=== PATIENT | female | born 1955 | race Caucasian/White ===

== ENCOUNTER 2019-11-28 05:24 | Day surgery (SDC) | payer MEDICARE, OTHER ==
[~2019-11-28] VITALS: Ht 175.3 cm; Wt 73.9 kg
[~2019-11-28 05:24] MED LIST: BUMETANIDE TAB 1MG PO; CLARITIN 10 MG10 MG PO; CRESTOR20 MG PO; HYDROCODON-ACE1 EA10 PO; LEVEMIR FL100 UNIT/1 SC; LEVOTHYROXINE100 MCG PO; NEURONTIN600 MG PO; PLAVIX75 MG PO; VITAMIN D10000 UNI1 PO
[2019-11-28 05:53] LABS: HEMATOCRIT 36.3 % (36.0-48.0); MCH 28.6 pg (26.0-34.0); MCHC 33.1 g/dL (31.0-37.0); MCV 86.4 fL (80.0-100.0); MEAN PLATELET VOLUME 9.7 fL (7.4-10.4); RBC 4.2 10x6/uL (4.00-5.40); RDW 18.9 % (11.5-14.5); WBC 12.8 10x3/uL (4.8-10.8)
[2019-11-28 05:59] LABS: INR 0.93 (0.85-1.17); PROTIME 12.5 SECONDS (11.6-15.0)
[2019-11-28 06:12] LABS: ANION GAP 13.3 mmol/L (8-16); CALCIUM 9.2 mg/dL (8.5-10.1); CARBON DIOXIDE 25.7 mmol/L (21.0-32.0); CREATININE - SERUM 1.7 mg/dL (0.6-1.3)
[2019-11-28] MEDS ORDERED: [UNRECOGNIZED DRUG - OTHER] SQ (06:30)
[2019-11-28 06:31] VITALS: BP 139/68; Ht 175.3 cm; Wt 73.9 kg
[2019-11-28] MEDS ORDERED: VISTARIL50 MG PO (08:18)
[2019-11-28] MEDS ORDERED: PERCOCET 10-321 EAC1 PO (08:18)
[2019-11-28] MEDS ORDERED: ZOFRAN ODT4 MG/UDTAB PO (08:19)
--- NOTE | 2019-11-28 10:02 | NUR ---
0925-REC'D FROM RR. AWAKE AND ALERT.VSS. DRESSING CDI TO LEFT ANKLE,ELEVATED ON PILLOW AND ICE ON FOOT. REPORTS PAIN 01/01. REVIEWED DISCHARGE CRITERIA. CL IN EASY REACH. FAMILY AT BEDSIDE
--- NOTE | 2019-11-28 10:22 | NUR ---
0955-FULL LIQUID TRAY TO ROOM. AWAKE AND ALERT. NO CHANGES TO LEFT ANKLE,DRESSING CDI. CAP REFILL WNL. ICE PACK IN PLACE. CL IN EASY REACH
--- NOTE | 2019-11-28 11:29 | NUR ---
1020-REPORTS PAIN /10 TO SURGICAL SITE. ADMINISTERED PERCOCET 10/325MG 1 BY MOUTH PER MD ORDERS. TOLERATED TRAY. DRESSING CDI. ICE PACK TO OUTTER LEFT ANKLE. CL IN EASY REACH. FAMILY AT BEDSIDE.
--- NOTE | 2019-11-28 11:30 | NUR ---
1045-REVIEWED POST OPERATIVE INSTRUCTIONS AND FOLLOW UP APPOINTMENT.VERBALIZED UNDERSTANDING
--- NOTE | 2019-11-28 11:31 | NUR ---
1110-DISCHARGE CRITERIA MET. PAIN 01/01. PIVOT TRANSFER WITH STANDBY ASSIST INTO W/C WITHOUT DIFFICULTIES. ESCORTED OUT VIA W/C WITH NIECE AWAITING TO DRIVE HOME
--- NOTE | 2019-11-28 12:27 | OP ---
PATIENT NAME: MILAGROS RANGEL MEDICAL RECORD: [id number] :53 LOCATION:[facility] ADMISSION DATE: SURGEON: ABDIEL FRANKLIN DO DATE OF OPERATION: 11/28/2019 PROCEDURE PERFORMED: Left ankle open reduction and internal fixation. PREOPERATIVE DIAGNOSIS: Left ankle bimalleolar fracture. POSTOPERATIVE DIAGNOSIS: Left ankle bimalleolar fracture. INDICATIONS: Ms. Rangel is a 64-year-old female, who is being treated for cancer, is on chemo, who fell and fractured her left ankle. She is unable to put weight on it. She was seen in my office and we scheduled her for surgery. The fractures were minimally displaced, but due to the fact that it was bimalleolar, it has a high risk of becoming displaced and I informed her that risk as well as risk of infection, bleeding, damage to the superficial peroneal nerve and other nerves in the area, nonunion, malunion, need for further surgery, blood clots, and even , and she signed the consent. SURGEON: Abdiel Franklin DO DESCRIPTION OF PROCEDURE: The patient was given a block by anesthesia in the preoperative area, taken to the operative suite, laid in supine position, given general anesthetic and LMA was placed. She was given a gram of Ancef preoperatively. The left lower extremity was then prepped and draped in sterile fashion. Timeout was performed. Everyone was in agreement with the correct side, site, patient, and procedure. Then exsanguinated the left lower extremity with an Esmarch. Tourniquet was inflated to 350 mmHg and was up for 28 minutes. The incision then began over the lateral malleolus. Careful dissection was made down to the fibula. The fracture was minimally nondisplaced. I put 2 locking screws in the shaft as her bone was very soft and then 4 distally. This was confirmed to be in good position on AP and lateral. Then went to the medial malleolus. Put 2 guide pin, K-wires through the medial malleolus and put two 4.0 cannulated partially threaded screws 44 mm in length self-tapping over the guide pin. We then removed those K-wires and confirmed to be good on AP and lateral. Stressed the joint, did not widen and a medial clear space. I then let the tourniquet down. The site was then irrigated and closed by Alfredito Cohn, certified surgical carpenter assistant installer, with 2-0 Vicryl in an inverted interrupted fashion over the lateral incision and ZipLine placed on that and 4-0 Monocryl on the medial side in an inverted interrupted fashion. Steri-Strips were then placed over that. Adaptic, 4 x 4s, ABD were then wrapped around the ankle, secured with cast padding and then a 4 x 30 splint was placed on the ankle, a posterior short leg splint. She was then awakened and taken to recovery in stable condition. BLOOD LOSS: Minimal. COMPLICATIONS: None. TRANSINT:[id number] Voice Confirmation ID: [id number] DOCUMENT ID: [id number] OPERATIVE REPORT [id number] MILAGROS RANGEL MICHAEL D, DO at 1227 CC: [id number] DICTATION DATE: 11/28/19822 STRATEGIC MARKETING MANAGER: 11/28/19 1054 [facility] 11/28/19 [id number] [place] [address]
== END 2019-11-28 11:10 | disposition home or self-care (01) ==
LOC: D.OPS 05:24 → D.PAN 07:00 → D.OPS 11:10
PROVIDERS: Anesthesiology; ATTEND Orthopaedic Surgery
DX: S82.842A Displaced bimalleolar fracture of left lower leg, initial encounter for closed fracture (principal); W19.XXXA Unspecified fall, initial encounter; E11.9 Type 2 diabetes mellitus without complications; M25.572 Pain in left ankle and joints of left foot; I25.10 Atherosclerotic heart disease of native coronary artery without angina pectoris; Z79.01 Long term (current) use of anticoagulants; C34.90 Malignant neoplasm of unspecified part of unspecified bronchus or lung; S92.355A Nondisplaced fracture of fifth metatarsal bone, left foot, initial encounter for closed fracture; Z79.4 Long term (current) use of insulin

== ENCOUNTER 2020-01-06 06:51 | Inpatient (IN) | payer MEDICARE, OTHER ==
[2020-01-06] VITALS (9 sets, daily range): BP systolic 93–121; BP diastolic 45–68; BMI 24.1
[~2020-01-06] VITALS: Ht 175.3 cm; Wt 73.9 kg
[~2020-01-06 06:51] MED LIST changes: +PERCOCET 10-321 EAC1 PO; +VISTARIL50 MG PO; +ZOFRAN ODT4 MG/UDTAB PO; +[UNRECOGNIZED DRUG - OTHER] SQ
[2020-01-06 07:22] LABS: HEMATOCRIT 35.2 % (36.0-48.0); HEMOGLOBIN 11.5 g/dL (12-16); MCH 29.8 pg (26.0-34.0); MCHC 32.7 g/dL (31.0-37.0); MCV 91.2 fL (80.0-100.0); MEAN PLATELET VOLUME 9.6 fL (7.4-10.4); RBC 3.86 10x6/uL (4.00-5.40); RDW 19.9 % (11.5-14.5); WBC 9.2 10x3/uL (4.8-10.8)
[2020-01-06 07:57] LABS: ANION GAP 13.6 mmol/L (8-16); CALCIUM 8.6 mg/dL (8.5-10.1); CARBON DIOXIDE 25.4 mmol/L (21.0-32.0); CREATININE - SERUM 1.5 mg/dL (0.6-1.3)
--- NOTE | 2020-01-06 11:50 | NUR ---
PATIENT ADMITTED TO ROOM 2216. ADMISSION COMPLETE. DENIES NEEDS AT THIS TIME. LEFT ANKLE ELEVATED ON 2 PILLOWS PER ORDER. DRSG C/D/I. FALL PRECAUTIONS IN PLACE. WILL CONTINUE TO MONITOR.
--- NOTE | 2020-01-06 12:34 | NUR ---
PATIENT SLEEPING. WILL CONTINUE TO MONITOR.
--- NOTE | 2020-01-06 13:48 | OP ---
PATIENT NAME: MILAGROS RANGEL MEDICAL RECORD: [id number] :53 LOCATION: D.6 ADMISSION DATE: SURGEON: JUSTINO FRANKLIN DO DATE OF OPERATION: 01/06/2020 PROCEDURE PERFORMED: Left ankle removal of hardware with irrigation and debridement, and wound VAC application with cultures. PREOPERATIVE DIAGNOSES: Left ankle wound dehiscence with exposed hardware and infection. POSTOPERATIVE DIAGNOSES: Left ankle wound dehiscence with exposed hardware and infection. INDICATIONS: Ms. Rangel is a 64-year-old female who underwent left ankle open reduction internal fixation for a bimalleolar ankle fracture. She was doing well up until a few days ago where she was wearing a boot and had rubbed off a blister and then a hole on the lateral aspect of the ankle, exposing the hardware, it went all the way through her skin. She showed up in clinic yesterday and there was no drainage, so I told her we need to get that out of there and ellipse that and take the hardware out and hopefully close up that wound before it got infected and she showed up today and it was draining purulent fluid. She is aware of the risks including continued pain, below-knee amputation, infection, bleeding, damage to nerves and vessels, need for further surgery, and she signed the consent. SURGEON: Justino Franklin DO DESCRIPTION OF PROCEDURE: The patient was taken to the operative suite, laid in supine position after given a block by anesthesia in preoperative area, the left lower extremity was then prepped and draped in sterile fashion. She was sedated and LMA was placed prior to that. Once the left lower extremity was prepped and draped in sterile fashion, timeout was performed, everyone was in agreement with the correct side, site, patient and procedure. She did receive 2 grams Ancef. The incision was then made over the old incision and the hardware was removed from the left ankle. Cultures were taken prior to removing the hardware and then a bone biopsy was taken after removing the hardware in the fibula. We then did an elliptical incision type where the skin was worn through. I then irrigated with a 10% povidone iodine solution with 500 mL normal saline irrigated that and then irrigated with 3 liters normal saline. After the saline was done, I then closed the skin with a 2-0 Prolene in horizontal mattress and simple fashion. I then placed a Prevena plus wound VAC on the ankle. She was then wrapped with an Brandon wrap, awakened and taken to recovery in stable condition. BLOOD LOSS: Minimal. COMPLICATIONS: None. TRANSINT:[id number] Voice Confirmation ID: [id number] DOCUMENT ID: [id number] OPERATIVE REPORT [id number] MILAGROS RANGEL MICHAEL D, DO at 1348 CC: [id number] DICTATION DATE: 01/06/20 1052 PIG CONVEYOR OPERATOR: 01/06/20 1220 [facility] [address] [place] [address]
--- NOTE | 2020-01-06 16:04 | NUR ---
GLUCOMETER READING 496, THEN 356, THEN 296 ON THREE DIFFERENT FINGERS WITH SAME GLUCOMETER. ORDER PLACED FOR LAB TO DRAW.
--- NOTE | 2020-01-06 19:49 | NUR ---
PATIENT RESTING IN BED WITH NO S/S OF DISTRESS. PATIENT REQUESTED A PAIN PILL IF TIME. PATIENT DENIES OTHER NEEDS AT THIS TIME. BED IN LOWEST POSITION AND CALL LIGHT WITHIN REACH. ENCOURAGED THE PATIENT TO CALL IF SHE HAS NEEDS.
--- NOTE | 2020-01-06 21:01 | NUR ---
ADMINISTERED MEDS PER ORDERS. PATIENT DENIES OTHER NEEDS. ENCOURAGED THE PATIENT TO CALL IF SHE HAS NEEDS. W
[2020-01-07 01:08] VITALS: BP 80/44
[2020-01-07 05:38] VITALS: BP 98/54
[2020-01-07 06:02] LABS: BASOPHILS 0.3 % (0-2); EOSINOPHILS 5.2 % (0-7); HEMATOCRIT 33.2 % (36.0-48.0); HEMOGLOBIN 10.3 g/dL (12-16); IMMATURE GRANULOCYTES 3.6 % (0-5); MCH 29.1 pg (26.0-34.0); MEAN PLATELET VOLUME 9.9 fL (7.4-10.4); MONOCYTES 7.4 % (2-11); NEUTROPHILS 70.5 % (40-80); PLATELET COUNT 442 10x3/uL (130-400); RBC 3.54 10x6/uL (4.00-5.40); RDW 20.8 % (11.5-14.5); WBC 8.7 10x3/uL (4.8-10.8)
[2020-01-07 06:19] LABS: MCV 93.8 fL (80.0-100.0)
[2020-01-07 06:33] LABS: ANION GAP 12.6 mmol/L (8-16); CALCIUM 8.5 mg/dL (8.5-10.1); CARBON DIOXIDE 25.6 mmol/L (21.0-32.0); CREATININE - SERUM 1.6 mg/dL (0.6-1.3); MAGNESIUM - SERUM 1.9 mg/dL (1.8-2.4); POTASSIUM - SERUM 3.2 mmol/L (3.5-5.1)
--- NOTE | 2020-01-07 07:41 | NUR ---
PT K+ THIS MORNING IS 3.2, SPOKE TO DR FRANKLIN AND RECEIVED ORDERS FOR EP. NO OTHER NEEDS AT THIS TIME, CONTINUE WITH PLAN OF CARE
[2020-01-07 09:40] LABS: ERYTHROCYTE SEDIMENTATION RATE 61 mm/hr (0-30)
[2020-01-07 09:57] VITALS: BP 110/59
[2020-01-07 10:26] VITALS: Ht 175.3 cm; Wt 73.9 kg
--- NOTE | 2020-01-07 15:37 | NUR ---
I have reviewed this patient and I concur with the Shift Assessment completed by the Licensed Practical Nurse today this shift.
[2020-01-07 17:46] VITALS: BP 101/62
[2020-01-07 20:00] VITALS: BP 113/57
--- NOTE | 2020-01-08 01:11 | NUR ---
I have reviewed this patient and I concur with the Shift Assessment completed by the Licensed Practical Nurse today this shift.
--- NOTE | 2020-01-08 02:17 | NUR ---
PT RESTING IN BED. EYES CLOSED. NO SIGNS OF DISTRESS. BREATHING EVEN AND UNLABORED. LUNG SOUNDS CLEAR. IV SITE RT HAND DRESSING CLEAN DRY AND INTACT. NO SIGNS OF INFECTION. SKIN CLEAN DRY AND INTACT. BOWEL SOUNDS ACTIVE. LT LEG EMOBILIZER ON. WOUND VAC CLEAN DRY AND INTACT. WILL CONTINUE PLAN OF CARE. CALL LIGHT IN REACH. BED LOWERED AND LOCKED. BED RAILS UPX2
[2020-01-08 04:00] VITALS: BP 110/63
[2020-01-08 04:41] LABS: BASOPHILS 1.6 % (0-2); EOSINOPHILS 1.8 % (0-7); HEMATOCRIT 34.4 % (36.0-48.0); HEMOGLOBIN 10.7 g/dL (12-16); IMMATURE GRANULOCYTES 0.2 % (0-5); LYMPHOCYTES 31.1 % (15-50); MCH 29.4 pg (26.0-34.0); MCHC 31.1 g/dL (31.0-37.0); MCV 94.5 fL (80.0-100.0); MEAN PLATELET VOLUME 9.8 fL (7.4-10.4); MONOCYTES 11.6 % (2-11); NEUTROPHILS 53.7 % (40-80); PLATELET COUNT 388 10x3/uL (130-400); RBC 3.64 10x6/uL (4.00-5.40); RDW 20.9 % (11.5-14.5)
[2020-01-08 04:56] LABS: WBC 4.5 10x3/uL (4.8-10.8)
[2020-01-08 04:57] LABS: ANION GAP 11.7 mmol/L (8-16); CALCIUM 8.8 mg/dL (8.5-10.1); CARBON DIOXIDE 26.9 mmol/L (21.0-32.0); MAGNESIUM - SERUM 2.1 mg/dL (1.8-2.4); POTASSIUM - SERUM 3.6 mmol/L (3.5-5.1)
[2020-01-08 05:04] LABS: CREATININE - SERUM 2.2 mg/dL (0.6-1.3)
[2020-01-08 08:00] VITALS: BP 100/48
[2020-01-08 09:13] VITALS: BP 133/58
--- NOTE | 2020-01-08 10:10 | NUR ---
PT LYING IN BED, ASSISTED PT WITH BEDPAN AND BREAKFAST TRAY, PT WORKED WITH ES IN PT AND WAS TOLD CAN GET UP WITH NURSING STAFF IF NEEDED. ADMINISTERED PRN PAIN MEDICATION WITH MORNING MEDS, NO OTHER NEEDS VOICED, CONTINUE WITH PLAN OF CARE
[2020-01-08 12:36] VITALS: BP 94/85
--- NOTE | 2020-01-08 13:13 | NUR ---
PT STATED PAIN IS AT A 5, ADMINISTERED PRN PAIN MEDICATION. CONTINUE WITH PLAN OF CARE
--- NOTE | 2020-01-08 13:58 | NUR ---
I have reviewed this patient and I concur with the Shift Assessment completed by the Licensed Practical Nurse today this shift.
[2020-01-08 16:55] VITALS: BP 113/58
[2020-01-08 20:00] VITALS: BP 100/48
--- NOTE | 2020-01-08 21:00 | NUR ---
PT LYING IN BED RESTING WITHOUT DISTRESS. PT CONFUSED TO TIME AND SITUATION. EASILY REORIENTED. JUST RECIEVED PAIN MED FOR LEFT ANKLE. LEFT LEG ELEVATED ON PILLOW. LUNGS SOUNDS CLEAR BILAT. PT ONLY COMPLAINT AT THIS TIME IS THAT NOSE IS STOPPED UP. ASKED IF SHE WAS GETTING HER CLARITIN. TOLD PT WE WERE GIVING HER DANITZA. VERBALIZED UNDERSTANDING. BS 95, NO INSULIN AT THIS TIME PER SS, LANTUS HELD. IV RIGHT HAND INFUSING 1/2NS @ 100. WOUND VAC IN PLACE TO LEFT ANKLE. DENIES OTHER NEEDS. CL IN REACH, WILL CTM
[2020-01-09 04:00] VITALS: BP 121/65
[2020-01-09 05:16] LABS: BASOPHILS 0.6 % (0-2); EOSINOPHILS 1.8 % (0-7); HEMATOCRIT 29.2 % (36.0-48.0); HEMOGLOBIN 9.2 g/dL (12-16); IMMATURE GRANULOCYTES 0.2 % (0-5); LYMPHOCYTES 28.1 % (15-50); MCH 29.3 pg (26.0-34.0); MCHC 31.5 g/dL (31.0-37.0); MEAN PLATELET VOLUME 9.8 fL (7.4-10.4); MONOCYTES 10.1 % (2-11); NEUTROPHILS 59.2 % (40-80); PLATELET COUNT 330 10x3/uL (130-400); RBC 3.14 10x6/uL (4.00-5.40); RDW 20.9 % (11.5-14.5); WBC 4.9 10x3/uL (4.8-10.8)
[2020-01-09 05:40] LABS: ANION GAP 11.3 mmol/L (8-16); CALCIUM 8.2 mg/dL (8.5-10.1); CARBON DIOXIDE 24.2 mmol/L (21.0-32.0); CREATININE - SERUM 2.3 mg/dL (0.6-1.3); MAGNESIUM - SERUM 1.8 mg/dL (1.8-2.4); POTASSIUM - SERUM 3.5 mmol/L (3.5-5.1)
--- NOTE | 2020-01-09 08:05 | NUR ---
AWAKE AND ALERT. ORIENTED X3. NO C/O AT THIS TIME. FSBS 86. LUNGS ARE CLEAR BILATERALLY, NO COUGH NOTED. SKIN IS INTACT WITHOUT REDNESS EXCEPT INCISION TO LEFT ANKLE WHICH HAS A DRY INTACT DRESSING IN PLACE. PREVENA IN PLACE AT THIS TIME. NEURO CHECKS WNL. SL TO RIGHT HAND IS PATENT WITHOUT REDNESS ATINSERTION SITE. DENIES NEEDS.
[2020-01-09 09:00] VITALS: BP 115/63
--- NOTE | 2020-01-09 10:00 | NUR ---
ATE ALL OF BREAKFAST AND TOOK AM MEDS WITHOUT DIFFICULTY. ASSISTED WITH BED LAINEZ PER STAFF. VOIDED 500CC CLEAR YELLOW URINE. SKIN CARE PER STAFF.
[2020-01-09 12:34] VITALS: BP 115/60
--- NOTE | 2020-01-09 13:00 | NUR ---
ATE ALL OF LUNCH. NO C/O AT THIS TIME.
--- NOTE | 2020-01-09 13:45 | NUR ---
Nutrition Follow-up: Eating well. Ate all of breakfast this AM. Denies N/V, chewing/swallowing difficulties. Noted ST signed off. Reports having a BM since admit but unsure when. Diet: Diabetic Wt: 163# (01/06) Labs noted: Na 135, Glu 219, Ca 8.2 Meds noted: Humalog, vitamin D, Lantus, 1/2NS @ 100 -Monitor wt. -RD following.
--- NOTE | 2020-01-09 14:21 | NUR ---
UP IN CHAIR AT BEDSIDE PER PT. NO C/O AT THIS TIME.
--- NOTE | 2020-01-09 14:30 | MORECARE ---
CASE MANAGEMENT DISCHARGE SUMMARY PATIENT: MILAGROS RANGEL UNIT: [id number] ADM DATE: 01/06/20 AGE: 64 : 54 SEX: F ROOM/BED: D.2216 AUTHOR: AMARILIS HAYES PHYSICIAN: REFERRING PHYSICIAN: JUSTINO FRANKLIN DO DATE OF SERVICE: 01/09/20 Discharge Plan Patient Name[facility] MILAGROS [facility]ANGEL [facility] 1955 Planned Disposition: Home with Home Health Anticipated Discharge Date: Discharge Date: Expected LOS: Initial Reviewer: [id number] Initial Review Date: 01/07/2020 Generated: 01/09/20 3:30 pm DCPIA - Discharge Planning Initial Assessment Updated by [email or web address]: Sofie Cottrell on 01/09/20 2:29 pm * Is the patient Alert and Oriented? Yes * How many steps to enter\exit or inside your home? * PCP SENTHIL JOLLY * Pharmacy [facility] * Preadmission Environment Home with Family * ADLs Independent * Equipment Bedside Commode Rolling Walker Shower Chair * List name and contact numbers for known caregivers / representatives who currently or will assist patient after discharge: CARLOS A LAY (NIECE) ([phone]) * Verbal permission to speak to the caregivers and representatives has been obtained from the patient. N/A * Community resources currently utilized None * Additional services required to return to the preadmission environment? Yes * Can the patient safely return to the preadmission environment? Yes * Has this patient been hospitalized within the prior 30 days at any hospital? No Patient Name: MILAGROS RANGEL Page [phone] at 1430 All edits/amendments must be made on the electronic document DICTATION DATE: 01/09/20 143 HOSPITAL ACCOUNT MANAGER: GRAZYNA 01/09/20 1430 RPT#: [id number] DC DATE: STATUS: ADM IN [facility] [address] [place] [address] END OF REPORT
--- NOTE | 2020-01-09 14:39 | MORECARE ---
CASE MANAGEMENT DISCHARGE SUMMARY PATIENT: MILAGROS RANGEL UNIT: [id number] ADM DATE: 01/06/20 AGE: 64 : 53 SEX: F ROOM/BED: D.2216 AUTHOR: ABIGAIL,DOC PHYSICIAN: REFERRING PHYSICIAN: JUSTINO FRANKLIN DO DATE OF SERVICE: 01/09/20 Discharge Plan Patient Name: MILAGROS RANGEL Facility: [facility]:[place] : 1955 Planned Disposition: Home with Home Health Anticipated Discharge Date: Discharge Date: Expected LOS: Initial Reviewer: [email or web address] Initial Review Date: 01/07/2020 Generated: 01/09/20 3:39 pm Comments DCP- Discharge Planning Updated by [id number]: Sofie Cottrell on 01/09/20 1:[address] Patient Name: MILAGROS RANGEL Admission Status: Elective Accout number: [id number] Admission Date: 01-06-2020 : 1955 Admission Diagnosis:INFECT/INFLM REACTION DUE TO INT FIX OF LEFT FIBULA, IN Attending: JUSTINO FRANKLIN Current LOS: 3 Anticipated DC Date: Planned Disposition: Home with Home Health Primary Insurance: MEDICARE A & B Discharge Planning Comments: CM met with patient to complete initial dc planning assessment. CM educated patient on the CM role and verbal consent given by patient to complete assessment. Patient lives at home with her niece and her . At discharge patient plans to return home and feels this is a safe discharge. 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 CM discussed availability of home health, rehab services, and medical equipment. She has a walker, walker with a seat, BSC, and shower chair. She would like home health with PT when she is discharge. JOSE with [employer] [facility] and an IMM was given and explained. I will send referral to [employer] [facility]. I have spoke with Jacinto and let him know. Patient denied known discharge needs at this time. CM will continue to follow and will assist as needed with dc plans/needs. Program Advisor: Sofie Cottrell DCPIA - Discharge Planning Initial Assessment Updated by [email or web address]: Sofie Cottrell on 01/09/20 2:29 pm * Is the patient Alert and Oriented? Yes * How many steps to enter\exit or inside your home? * PCP SENTHIL JOLLY * Pharmacy [facility] [address] * Preadmission Environment Home with Family * ADLs Independent * Equipment Bedside Commode Rolling Walker Shower Chair * List name and contact numbers for known caregivers / representatives who currently or will assist patient after discharge: CARLOS A LAY (NIECE) ([phone]) * Verbal permission to speak to the caregivers and representatives has been obtained from the patient. N/A * Community resources currently utilized None * Additional services required to return to the preadmission environment? Yes * Can the patient safely return to the preadmission environment? Yes * Has this patient been hospitalized within the prior 30 days at any hospital? No Coverage Notice Reviewer: [email or web address] Cottrell Notice Issued Date-Time: 01/09/2020 14:30 Notice Type: IM Discharge Notice Notice Delivered To: Patient Relationship to Patient: Doctor Of Pharmacy Name: Delivery Method: HAND - Hand Delivered Nilam Days: Prior Verbal Notification: Recipient Understood Notice: Yes Recipient Signature: Yes Med Rec Note Co-signed by Attending: Coverage Notice Comment: Reviewer: [email or web address] Cottrell Notice Issued Date-Time: 01/09/2020 14:30 Notice Type: Patient Choice Letter Notice Delivered To: Patient Relationship to Patient: Doctor Of Pharmacy Name: Delivery Method: HAND - Hand Delivered Nilam Days: Prior Verbal Notification: Recipient Understood Notice: Yes Recipient Signature: Yes Med Rec Note Co-signed by Attending: Coverage Notice Comment: jose with [employer] [facility] Last DP export: 01/09/20 1:30 p Patient Name: MILAGROS RANGEL Page [phone] at 1439 All edits/amendments must be made on the electronic document DICTATION DATE: 01/09/20 143 QUALITY MANAGEMENT NURSE: GRAZYNA 01/09/20 143 RPT#: [id number] DC DATE: STATUS: ADM IN [facility] [address] [place] [address] END OF REPORT
--- NOTE | 2020-01-09 14:50 | NUR ---
UP TO BSC WITH ONE PERSON MIN ASSIST. VOIDED 500 CC CLEAR YELLOW URINE WITHOUT DIFFICULTY. DENIES NEEDS.
--- NOTE | 2020-01-09 17:04 | NUR ---
OT NOTE: PT COMPLETED UE AROM. PT STATED C/O PAIN IN RUE SHOULDER AREA. PT COMPLETED LUE AROM WO C/O PAIN. NOTIFIED NURSE. PT COMPLETED SITTING BALANCE AX WITH SBA. PT COMPLETED FACE HYGIENE WITH SET UP. [phone] THANK YOU,PENNY BURGOS
--- NOTE | 2020-01-09 18:47 | NUR ---
RESTING QUIETLY IN BED. ATE ALL OF SUPPER. DENIES NEEDS. NO CHANGES NOTED.
--- NOTE | 2020-01-09 19:05 | NUR ---
PATIENT ALERT AND ORIENTED WHEN ENTERING THE ROOM. PATIENT STATES SHE NEEDS TO THE BATHROOM. ASSISTED WITH WALKER AND EDUCATED ON NWB TO THE AFFECTED ANKLE. PATIENT DEMONSTRATES AMBULATION WELL WITH THE WALKER. RETURNED TO BED SAFELY. WOUND VAC TO ANKLE, SUCTIONING APPROPRIATELY AT 125 MMHQ. CAPILLARY REFILL LESS THAN THREE SECONDS. IV TO THE RIGHT HAND. DENIES PAIN AT THIS TIME. DENIES DISCOMFORT AT THIS TIME. SPOKE WITH PATIENT ABOUT USING CALL LIGHT AND SAFETY. PATIENT VERBALIZES UNDERSTANDING. CALL LIGHT IN REACH. CLOSE TO NURSES STATION. CPOC.
[2020-01-09 20:08] VITALS: BP 101/50
[2020-01-10 00:56] VITALS: BP 117/61
--- NOTE | 2020-01-10 01:52 | NUR ---
RESTING WITH NO SIGNS OR SYMPTOMS OF DISTRESS AT THIS TIME. CALL LIGHT IN REACH. CPOC.
--- NOTE | 2020-01-10 02:43 | NUR ---
RECHECKED SUCTIONING ON WOUND VAC. REMAINS PATENT AND SUCTIONING AT 125 MMHQ.
[2020-01-10 03:00] VITALS: BP 133/75
[2020-01-10 05:08] LABS: EOSINOPHILS 1.4 % (0-7); HEMOGLOBIN 10.3 g/dL (12-16); IMMATURE GRANULOCYTES 0.2 % (0-5); LYMPHOCYTES 37.1 % (15-50); MCH 29.2 pg (26.0-34.0); MCHC 31.2 g/dL (31.0-37.0); MCV 93.5 fL (80.0-100.0); MEAN PLATELET VOLUME 9.8 fL (7.4-10.4); MONOCYTES 11.6 % (2-11); NEUTROPHILS 48.7 % (40-80); PLATELET COUNT 367 10x3/uL (130-400); RBC 3.53 10x6/uL (4.00-5.40); RDW 21.1 % (11.5-14.5); WBC 5.8 10x3/uL (4.8-10.8)
[2020-01-10 05:32] LABS: ANION GAP 13.5 mmol/L (8-16); CALCIUM 9.2 mg/dL (8.5-10.1); CARBON DIOXIDE 25.1 mmol/L (21.0-32.0); CREATININE - SERUM 1.8 mg/dL (0.6-1.3); POTASSIUM - SERUM 3.6 mmol/L (3.5-5.1)
--- NOTE | 2020-01-10 06:21 | NUR ---
I have reviewed this patient and I concur with the Shift Assessment completed by the Licensed Practical Nurse today this shift.
[2020-01-10 08:45] VITALS: BP 142/76
--- NOTE | 2020-01-10 10:23 | NUR ---
SWITCHED OUT THE WOUND VAC TO THE HOME WOUND VAC. SHE IS SOMETIMES FORGETFUL. SHE IS NONWEIGHT BEARING ON THE LEFT ANKLE/FOOT.
[2020-01-10] MEDS ORDERED: LEVOFLOXACIN500 MG PO (10:32)
[2020-01-10] MEDS ORDERED: PERCOCET 10-321 EAC1 PO (10:32)
--- NOTE | 2020-01-10 10:51 | MORECARE ---
CASE MANAGEMENT DISCHARGE SUMMARY PATIENT: MILAGROS RANGEL UNIT: [id number] ADM DATE: 01/06/20 AGE: 64 : 53 SEX: F ROOM/BED: D.2216 AUTHOR: ABIGAIL,DOC PHYSICIAN: REFERRING PHYSICIAN: JUSTINO FRANKLIN DO DATE OF SERVICE: 01/10/20 Discharge Plan Patient Name: MILAGROS RANGEL [facility]:[place] : 1955 Planned Disposition: Home with Home Health Anticipated Discharge Date: Discharge Date: Expected LOS: Initial Reviewer: [id number] Initial Review Date: 01/07/2020 Generated: 01/10/20 11:50 am Comments DCP- Discharge Planning Updated by [email or web address]: Antonietta Buchanan on 01/10/20 9:[address] Contacted [email or web address] [facility] answering service, provided information and await CB. DCP- Discharge Planning Updated by [id number]: Sofie Cottrell on 01/09/20 1:[address] Patient Name: MILAGROS RANGEL Admission Status: Elective Accout number: [id number] Admission Date: 01-06-2020 : 1955 Admission Diagnosis:INFECT/INFLM REACTION DUE TO INT FIX OF LEFT FIBULA, IN Attending: JUSTINO FRANKLIN Current LOS: 3 Anticipated DC Date: Planned Disposition: Home with Home Health Primary Insurance: MEDICARE A & B Discharge Planning Comments: CM met with patient to complete initial dc planning assessment. CM educated patient on the CM role and verbal consent given by patient to complete assessment. Patient lives at home with her niece and her . At discharge patient plans to return home and feels this is a safe discharge. 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 CM discussed availability of home health, rehab services, and medical equipment. She has a walker, walker with a seat, BSC, and shower chair. She would like home health with PT when she is discharge. JOSE with [email or web address] [facility] and an IMM was given and explained. I will send referral to [employer] [facility]. I have spoke with Jacinto and let him know. Patient denied known discharge needs at this time. CM will continue to follow and will assist as needed with dc plans/needs. Forensics Analyst: Sofie Cottrell DCPIA - Discharge Planning Initial Assessment Updated by [id number]: Sofie Cottrell on 01/09/20 2:29 pm * Is the patient Alert and Oriented? Yes * How many steps to enter\exit or inside your home? * PCP SENTHIL JOLLY * Pharmacy [facility] [address] * Preadmission Environment Home with Family * ADLs Independent * Equipment Bedside Commode Rolling Walker Shower Chair * List name and contact numbers for known caregivers / representatives who currently or will assist patient after discharge: CARLOS A LAY (NIECE) ([phone]) * Verbal permission to speak to the caregivers and representatives has been obtained from the patient. N/A * Community resources currently utilized None * Additional services required to return to the preadmission environment? Yes * Can the patient safely return to the preadmission environment? Yes * Has this patient been hospitalized within the prior 30 days at any hospital? No Coverage Notice Reviewer: [id number] Tommy Cottrell Notice Issued Date-Time: 01/09/2020 14:30 Notice Type: IM Discharge Notice Notice Delivered To: Patient Relationship to Patient: Aeronautical Inspector Name: Delivery Method: HAND - Hand Delivered Nilam Days: Prior Verbal Notification: Recipient Understood Notice: Yes Recipient Signature: Yes Med Rec Note Co-signed by Attending: Coverage Notice Comment: Reviewer: [id number] Tommy Cottrell Notice Issued Date-Time: 01/09/2020 14:30 Notice Type: Patient Choice Letter Notice Delivered To: Patient Relationship to Patient: Aeronautical Inspector Name: Delivery Method: HAND - Hand Delivered Nilam Days: Prior Verbal Notification: Recipient Understood Notice: Yes Recipient Signature: Yes Med Rec Note Co-signed by Attending: Coverage Notice Comment: jose with [employer] Last DP export: 01/09/20 1:39 p Patient Name: MILAGROS RANGEL Page [phone] at 1051 All edits/amendments must be made on the electronic document DICTATION DATE: 01/10/20 1050 MENDING CARRIER: GRAZYNA 01/10/20 1050 RPT#: [id number] DC DATE: STATUS: ADM IN [facility] [address] [place] [address] END OF REPORT
--- NOTE | 2020-01-10 11:03 | MORECARE ---
CASE MANAGEMENT DISCHARGE SUMMARY PATIENT: MILAGROS RANGEL UNIT: [id number] ADM DATE: 01/06/20 AGE: 64 : 53 SEX: F ROOM/BED: D.2216 AUTHOR: ABIGAIL,DOC PHYSICIAN: REFERRING PHYSICIAN: JUSTINO FRANKLIN DO DATE OF SERVICE: 01/10/20 Discharge Plan Patient Name: MILAGROS RANGEL Facility: [facility]:[place] : 1955 Planned Disposition: Home with Home Health Anticipated Discharge Date: Discharge Date: Expected LOS: Initial Reviewer: [email or web address] Initial Review Date: 01/07/2020 Generated: 01/10/20 12:03 pm Comments DCP- Discharge Planning Updated by [email or web address]: Antonietta Buchanan on 01/10/20 10:[address] CB from [place], notified of DC today. Patient is scheduled to be seen on Sunday per [facility] . Contacted [facility] answering service, provided information and await CB. DCP- Discharge Planning Updated by [id number]: Sofie Cottrell on 01/09/20 1:[address] Patient Name: MILAGROS RANGEL Admission Status: Elective Accout number: [id number] Admission Date: 01-06-2020 : 1955 Admission Diagnosis:INFECT/INFLM REACTION DUE TO INT FIX OF LEFT FIBULA, IN Attending: JUSTINO FRANKLIN Current LOS: 3 Anticipated DC Date: Planned Disposition: Home with Home Health Primary Insurance: MEDICARE A & B Discharge Planning Comments: CM met with patient to complete initial dc planning assessment. CM educated patient on the CM role and verbal consent given by patient to complete assessment. Patient lives at home with her niece and her . At discharge patient plans to return home and feels this is a safe discharge. 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 CM discussed availability of home health, rehab services, and medical equipment. She has a walker, walker with a seat, BSC, and shower chair. She would like home health with PT when she is discharge. JOSE with [facility] and an [facility] was given and explained. I will send referral to [employer]. I have spoke with Ray and let him know. Patient denied known discharge needs at this time. CM will continue to follow and will assist as needed with dc plans/needs. Stick Inserter: Sofie Cottrell DCPIA - Discharge Planning Initial Assessment Updated by [email or web address]: Sofie Cottrell on 01/09/20 2:29 pm * Is the patient Alert and Oriented? Yes * How many steps to enter\exit or inside your home? * PCP SENTHIL JOLLY * Pharmacy [facility] [address] * Preadmission Environment Home with Family * ADLs Independent * Equipment Bedside Commode Rolling Walker Shower Chair * List name and contact numbers for known caregivers / representatives who currently or will assist patient after discharge: CARLOS A LAY (NIECE) ([phone]) * Verbal permission to speak to the caregivers and representatives has been obtained from the patient. N/A * Community resources currently utilized None * Additional services required to return to the preadmission environment? Yes * Can the patient safely return to the preadmission environment? Yes * Has this patient been hospitalized within the prior 30 days at any hospital? No Coverage Notice Reviewer: [id number] - Sofie Cottrell Notice Issued Date-Time: 01/09/2020 14:30 Notice Type: IM Discharge Notice Notice Delivered To: Patient Relationship to Patient: Clinical Document Improvement Educator Name: Delivery Method: HAND - Hand Delivered Nilam Days: Prior Verbal Notification: Recipient Understood Notice: Yes Recipient Signature: Yes Med Rec Note Co-signed by Attending: Coverage Notice Comment: Reviewer: [id number] Tommy Cottrell Notice Issued Date-Time: 01/09/2020 14:30 Notice Type: Patient Choice Letter Notice Delivered To: Patient Relationship to Patient: Clinical Document Improvement Educator Name: Delivery Method: HAND - Hand Delivered Nilam Days: Prior Verbal Notification: Recipient Understood Notice: Yes Recipient Signature: Yes Med Rec Note Co-signed by Attending: Coverage Notice Comment: jose with [employer] Last DP export: 01/10/20 9:51 a Patient Name: MILAGROS RANGEL Page [id number] at 1103 All edits/amendments must be made on the electronic document DICTATION DATE: 01/10/20 110 DOCTOR OF RADIOLOGY: GRAZYNA 01/10/20 1103 RPT#: [id number] DC DATE: STATUS: ADM IN [facility] [address] [place] [address] END OF REPORT
--- NOTE | 2020-01-10 11:10 | MORECARE ---
CASE MANAGEMENT DISCHARGE SUMMARY PATIENT: MILAGROS RANGEL UNIT: [id number] ADM DATE: 01/06/20 AGE: 64 : 53 SEX: F ROOM/BED: D.2216 AUTHOR: ABIGAIL,DOC PHYSICIAN: REFERRING PHYSICIAN: JUSTINO FRANKLIN DO DATE OF SERVICE: 01/10/20 Discharge Plan Patient Name: MILAGROS RANGEL Facility: [facility]:[place] : 1955 Planned Disposition: Home with Home Health Anticipated Discharge Date: 01/10/20 Discharge Date: Expected LOS: 4 Initial Reviewer: [id number] Initial Review Date: 01/07/2020 Generated: 01/10/20 12:09 pm Comments DCP- Discharge Planning Updated by [id number]: Antonietta Buchanan on 01/10/20 10:[address] CB from [place], notified of DC today. Patient is scheduled to be seen on Sunday per [facility]. Contacted [facility] answering service, provided information and await CB. DCP- Discharge Planning Updated by [id number]: Sofie Cottrell on 01/09/20 1:[address] Patient Name: MILAGROS RANGEL Admission Status: Elective Accout number: [id number] Admission Date: 01-06-2020 : 1955 Admission Diagnosis:INFECT/INFLM REACTION DUE TO INT FIX OF LEFT FIBULA, IN Attending: JUSTINO FRANKLIN Current LOS: 3 Anticipated DC Date: Planned Disposition: Home with Home Health Primary Insurance: MEDICARE A & B Discharge Planning Comments: CM met with patient to complete initial dc planning assessment. CM educated patient on the CM role and verbal consent given by patient to complete assessment. Patient lives at home with her niece and her . At discharge patient plans to return home and feels this is a safe discharge. 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 CM discussed availability of home health, rehab services, and medical equipment. She has a walker, walker with a seat, BSC, and shower chair. She would like home health with PT when she is discharge. JO[facility] with [facility] and an [facility] was given and explained. I will send [facility] to [facility]. I have spoke with Ray and let him know. Patient denied known discharge needs at this time. CM will continue to follow and will assist as needed with dc plans/needs. Circle Saw Operator: Sofie Cottrell DCPIA - Discharge Planning Initial Assessment Updated by [email or web address]: Sofie Cottrell on 01/09/20 2:29 pm * Is the patient Alert and Oriented? Yes * How many steps to enter\exit or inside your home? * PCP SENTHIL JOLLY * Pharmacy [facility] [address] * Preadmission Environment Home with Family * ADLs Independent * Equipment Bedside Commode Rolling Walker Shower Chair * List name and contact numbers for known caregivers / representatives who currently or will assist patient after discharge: CARLOS A LAY (NIECE) ([phone]) * Verbal permission to speak to the caregivers and representatives has been obtained from the patient. N/A * Community resources currently utilized None * Additional services required to return to the preadmission environment? Yes * Can the patient safely return to the preadmission environment? Yes * Has this patient been hospitalized within the prior 30 days at any hospital? No Coverage Notice Reviewer: [id number] - Sofie Cottrell Notice Issued Date-Time: 01/09/2020 14:30 Notice Type: IM Discharge Notice Notice Delivered To: Patient Relationship to Patient: Truck Assembler Name: Delivery Method: HAND - Hand Delivered Nilam Days: Prior Verbal Notification: Recipient Understood Notice: Yes Recipient Signature: Yes Med Rec Note Co-signed by Attending: Coverage Notice Comment: Reviewer: [email or web address] Tommy Cottrell Notice Issued Date-Time: 01/09/2020 14:30 Notice Type: Patient Choice Letter Notice Delivered To: Patient Relationship to Patient: Truck Assembler Name: Delivery Method: HAND - Hand Delivered Nilam Days: Prior Verbal Notification: Recipient Understood Notice: Yes Recipient Signature: Yes Med Rec Note Co-signed by Attending: Coverage Notice Comment: jose with [employer] Last DP export: 01/10/20 9:51 a Patient Name: MILAGROS RANGEL Page [id number] at 1110 All edits/amendments must be made on the electronic document DICTATION DATE: 01/10/20 110 NEGATIVE CUTTER: GRAZYNA 01/10/20 1109 RPT#: [id number] DC DATE: STATUS: ADM IN [facility] [address] [place] [address] END OF REPORT
--- NOTE | 2020-01-10 12:52 | NUR ---
DISCHARGE PAPERWORK GONE OVER WITH. SHE IS TOOK THE WALKING BOOT WITH HER. HOME WOUND VAC ON PER DR. FRANKLIN. THE IV IS OUT, TOOK OUT VIA WHEELCHAIR.
--- NOTE | 2020-01-10 16:34 | MORECARE ---
CASE MANAGEMENT DISCHARGE SUMMARY PATIENT: MILAGROS RANGEL UNIT: [id number] ADM DATE: 01/06/20 AGE: 64 : 53 SEX: F ROOM/BED: D.2216 AUTHOR: ABIGAIL,DOC PHYSICIAN: REFERRING PHYSICIAN: JUSTINO FRANKLIN DO DATE OF SERVICE: 01/10/20 Discharge Plan Patient Name: MILAGROS RANGEL Facility: [facility]:[place] : 1955 Planned Disposition: Home with Home Health Anticipated Discharge Date: 01/10/20 Discharge Date: 01/10/2020 Expected LOS: 4 Initial Reviewer: [email or web address] Initial Review Date: 01/07/2020 Generated: 01/10/20 5:34 pm Comments DCP- Discharge Planning Updated by [email or web address]: Antonietta Buchanan on 01/10/20 10:[address] CB from [place], notified of DC today. Patient is scheduled to be seen on Sunday per [facility]. Contacted [facility] answering service, provided information and await CB. DCP- Discharge Planning Updated by [email or web address]: Sofie Cottrell on 01/09/20 1:[address] Patient Name: MILAGROS RANGEL Admission Status: Elective Accout number: [id number] Admission Date: 01-06-2020 : 1955 Admission Diagnosis:INFECT/INFLM REACTION DUE TO INT FIX OF LEFT FIBULA, IN Attending: JUSTINO FRANKLIN Current LOS: 3 Anticipated DC Date: Planned Disposition: Home with Home Health Primary Insurance: MEDICARE A & B Discharge Planning Comments: CM met with patient to complete initial dc planning assessment. CM educated patient on the CM role and verbal consent given by patient to complete assessment. Patient lives at home with her niece and her . At discharge patient plans to return home and feels this is a safe discharge. 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 CM discussed availability of home health, rehab services, and medical equipment. She has a walker, walker with a seat, BSC, and shower chair. She would like home health with PT when she is discharge. JOSE with [facility] and an [facility] was given and explained. I will send referral to [facility]. I have spoke with Ray and let him know. Patient denied known discharge needs at this time. CM will continue to follow and will assist as needed with dc plans/needs. Claims Collector: Sofie Cottrell DCPIA - Discharge Planning Initial Assessment Updated by [email or web address]: Sofie Cottrell on 01/09/20 2:29 pm * Is the patient Alert and Oriented? Yes * How many steps to enter\exit or inside your home? * PCP SENTHIL JOLLY * Pharmacy [facility] [address] * Preadmission Environment Home with Family * ADLs Independent * Equipment Bedside Commode Rolling Walker Shower Chair * List name and contact numbers for known caregivers / representatives who currently or will assist patient after discharge: CARLOS A LAY (NIECE) ([phone]) * Verbal permission to speak to the caregivers and representatives has been obtained from the patient. N/A * Community resources currently utilized None * Additional services required to return to the preadmission environment? Yes * Can the patient safely return to the preadmission environment? Yes * Has this patient been hospitalized within the prior 30 days at any hospital? No Coverage Notice Reviewer: [email or web address] - Sofie Cottrell Notice Issued Date-Time: 01/09/2020 14:30 Notice Type: IM Discharge Notice Notice Delivered To: Patient Relationship to Patient: Goat Driver Name: Delivery Method: HAND - Hand Delivered Nilam Days: Prior Verbal Notification: Recipient Understood Notice: Yes Recipient Signature: Yes Med Rec Note Co-signed by Attending: Coverage Notice Comment: Reviewer: [id number] - Sofie Cottrell Notice Issued Date-Time: 01/09/2020 14:30 Notice Type: Patient Choice Letter Notice Delivered To: Patient Relationship to Patient: Goat Driver Name: Delivery Method: HAND - Hand Delivered Nilam Days: Prior Verbal Notification: Recipient Understood Notice: Yes Recipient Signature: Yes Med Rec Note Co-signed by Attending: Coverage Notice Comment: jose with [email or web address] Last DP export: 01/10/20 10:10 a Patient Name: MILAGROS RANGEL Page 10210 at 1634 All edits/amendments must be made on the electronic document DICTATION DATE: 01/10/20 1634 FORMULA BOTTLER: GRAZYNA 01/10/20 1634 RPT#: [id number] DC DATE:04/18/20 STATUS: DIS IN [facility] [address] [address] END OF REPORT
== END 2020-01-10 12:54 | disposition home health service (06) | DRG 478 ==
LOC: D.OPS 06:51 → D.MS 06:51 → D.PAN 09:00 → D.OPS 09:00 → D.MS 10:51 → D.OPS 10:52 → D.PAN 11:00 → D.OPS 11:00 → D.MS 01-10 12:54
PROVIDERS: Anesthesiology; Family Medicine; ADMIT Orthopaedic Surgery; ATTEND Orthopaedic Surgery
PROC: 0SPG04Z Removal of Internal Fixation Device from Left Ankle Joint, Open Approach (ICD-10-PCS; 2020-01-06)
PROC: 0J9R0ZZ Drainage of Left Foot Subcutaneous Tissue and Fascia, Open Approach (ICD-10-PCS; 2020-01-06)
PROC: 0QBK0ZX Excision of Left Fibula, Open Approach, Diagnostic (ICD-10-PCS; principal; 2020-01-06 09:00)
DX: T84.625A Infection and inflammatory reaction due to internal fixation device of left fibula, initial encounter (principal); T81.31XA Disruption of external operation (surgical) wound, not elsewhere classified, initial encounter; C34.90 Malignant neoplasm of unspecified part of unspecified bronchus or lung; C78.7 Secondary malignant neoplasm of liver and intrahepatic bile duct; N17.9 Acute kidney failure, unspecified; Y83.9 Surgical procedure, unspecified as the cause of abnormal reaction of the patient, or of later complication, without mention of misadventure at the time of the procedure; E11.65 Type 2 diabetes mellitus with hyperglycemia; I10 Essential (primary) hypertension; I25.10 Atherosclerotic heart disease of native coronary artery without angina pectoris; E11.40 Type 2 diabetes mellitus with diabetic neuropathy, unspecified; E03.9 Hypothyroidism, unspecified; Z87.891 Personal history of nicotine dependence